=== PATIENT | female | born 1945 | race Caucasian/White ===

== ENCOUNTER → 2021-07-31 14:27 | Outpatient (BNVA) | payer MEDICARE, SELFPAY | PROVIDERS: Family Provider Electrodiagnostic Medicine; Visit Provider Nurse Practitioner Family | DX: J98.8 Other specified respiratory disorders (principal); Z20.822 Contact with and (suspected) exposure to COVID-19; R82.998 Other abnormal findings in urine | CPT/HCPCS: 87635 ==

== ENCOUNTER → 2021-08-01 08:34 | Outpatient (BNVA) | payer MEDICARE, SELFPAY | PROVIDERS: Family Provider Electrodiagnostic Medicine; Visit Provider Nurse Practitioner Family | DX: R82.998 Other abnormal findings in urine (principal) | CPT/HCPCS: 81000 ==

== ENCOUNTER 2024-08-15 06:30 | Outpatient (RCR) | payer MEDICARE, SELFPAY | END 2024-09-14 23:59 | disposition home or self-care (01) | LOC: APT 06:30 | PROVIDERS: Family Provider Electrodiagnostic Medicine | DX: R26.81 Unsteadiness on feet (principal) | CPT/HCPCS: 97110; 97163; 97530 ==

== ENCOUNTER 2024-09-15 06:00 | Outpatient (RCR) | payer MEDICARE, SELFPAY | END 2024-10-14 23:59 | disposition home or self-care (01) | LOC: APT 06:00 | PROVIDERS: PCP Electrodiagnostic Medicine | DX: R26.81 Unsteadiness on feet (principal) | CPT/HCPCS: 97110; 97112; 97530 ==

== ENCOUNTER 2024-10-15 06:00 | Outpatient (RCR) | payer MEDICARE, SELFPAY | END 2024-11-14 23:59 | disposition home or self-care (01) | LOC: APT 06:00 | PROVIDERS: PCP Electrodiagnostic Medicine | DX: R26.9 Unspecified abnormalities of gait and mobility (principal) | CPT/HCPCS: 97110; 97112; 97530 ==

== ENCOUNTER → 2024-12-13 13:57 | Outpatient (BNVA) | payer MEDICARE, SELFPAY | PROVIDERS: PCP Electrodiagnostic Medicine; Visit Provider Internal Medicine | DX: R07.9 Chest pain, unspecified (principal) | CPT/HCPCS: 93005; 99204 ==

== ENCOUNTER 2025-01-09 11:16 | Outpatient (CLI) | payer MEDICARE, SELFPAY ==
--- NOTE | 2025-01-09 11:15 | USCV_ITS ---
Alejandra Singh Age: 79 Gender: F : 1945 Exam Date: 01/09/2025 11:32 Ordering Phys: Geo Del Rio M.D ([email or web address]) Technologist: CT Exam Location: [facility] – [place] Indication: as BP: / HR: Rhythm: Sinus Technical Quality: Adequate MEASUREMENTS (Male / Female) Normal Values FINDINGS Left Ventricle Left ventricle is normal in size. LV systolic function is normal with EF of 55-60%. No regional wall motion abnormalities. Grade 1 diastolic dysfunction Right Ventricle Normal in size and function Right Atrium Normal in size Left Atrium Normal in size Mitral Valve Severe mitral annular calcification. Mild mitral regurgitation. Mild to moderate mitral stenosis with mean gradient across mitral valve of 5.84mmHg Aortic Valve Bioprosthetic aortic valve. Mild aortic stenosis with mean gradient across aortic valve of 15mmHg and aortic valve area of 1.37cm2. DVI is normal and is 0.40 Tricuspid Valve Insufficient TR jet to calculate RVSP Pulmonic Valve Not well visualized Pericardium Normal Aorta Normal in size IVC Not well visualized CONCLUSIONS LV systolic function is normal with EF of 55-60% Grade 1 diastolic dysfunction Mild mitral regurgitation. Mild to moderate mitral stenosis Mild aortic stenosis Geo Del Rio MD (Electronically Signed) Final Date: 20 January 2025 21:31 S
== END 2025-01-09 11:17 | disposition home or self-care (01) ==
LOC: RAD 11:20
PROVIDERS: Visit Provider Internal Medicine
DX: I35.0 Nonrheumatic aortic (valve) stenosis (principal); R93.1 Abnormal findings on diagnostic imaging of heart and coronary circulation; I34.81 Nonrheumatic mitral (valve) annulus calcification; I34.0 Nonrheumatic mitral (valve) insufficiency; Z95.2 Presence of prosthetic heart valve
CPT/HCPCS: 93306

== ENCOUNTER 2025-07-16 05:00 | Outpatient (RCR) | payer MEDICARE, SELFPAY | END 2025-08-14 23:59 | disposition home or self-care (01) | LOC: APT 05:00 | PROVIDERS: Visit Provider Orthopaedic Surgery | DX: S42.255D Nondisplaced fracture of greater tuberosity of left humerus, subsequent encounter for fracture with routine healing (principal); X58.XXXD Exposure to other specified factors, subsequent encounter | CPT/HCPCS: 97110; 97140; 97162; 97530 ==

== ENCOUNTER 2025-09-03 14:56 | Outpatient (RCR) | payer MEDICARE, SELFPAY | END 2025-09-14 23:59 | disposition home or self-care (01) | LOC: APT 14:56 | PROVIDERS: Visit Provider Orthopaedic Surgery | DX: S42.255D Nondisplaced fracture of greater tuberosity of left humerus, subsequent encounter for fracture with routine healing (principal); X58.XXXD Exposure to other specified factors, subsequent encounter | CPT/HCPCS: 97110; 97112; 97530 ==

== ENCOUNTER → 2025-09-20 13:37 | Outpatient (BNVA) | payer MEDICARE, SELFPAY | PROVIDERS: Visit Provider Nurse Practitioner Family | DX: L21.8 Other seborrheic dermatitis (principal); B35.3 Tinea pedis; L82.1 Other seborrheic keratosis; D18.01 Hemangioma of skin and subcutaneous tissue; L91.0 Hypertrophic scar | CPT/HCPCS: 99204 ==

== ENCOUNTER 2025-10-02 13:59 | Outpatient (RCR) | payer MEDICARE, SELFPAY | END 2025-10-14 23:59 | disposition home or self-care (01) | LOC: APT 13:59 | PROVIDERS: Visit Provider Orthopaedic Surgery | DX: S42.255D Nondisplaced fracture of greater tuberosity of left humerus, subsequent encounter for fracture with routine healing (principal); X58.XXXD Exposure to other specified factors, subsequent encounter | CPT/HCPCS: 97110 ==

== ENCOUNTER → 2025-10-25 11:12 | Outpatient (BNVA) | payer MEDICARE, SELFPAY | PROVIDERS: Visit Provider Nurse Practitioner Family | DX: I08.0 Rheumatic disorders of both mitral and aortic valves (principal); Z95.2 Presence of prosthetic heart valve | CPT/HCPCS: 99214 ==